=== PATIENT | male | born 1995 | race American Indian/Alaskan Native ===

== ENCOUNTER 2017-05-11 00:44 | Emergency (ER) | payer OTHER ==
[2017-05-11] MEDS ORDERED: LORazepam 1 MG Tab PO ONE (01:14)
--- NOTE | 2017-05-11 01:14 | EDM.PDOC ---
ED HPI GENERAL MEDICAL PROBLEM - General Chief Complaint: ENT Problem Stated Complaint: EAR PROBLEMS [id number] Time Seen by Provider: 05/11/17 01:06 Source of Information: Reports: Patient History Limitations: Reports: No Limitations - History of Present Illness INITIAL COMMENTS - FREE TEXT/NARRATIVE: c/oringing in left ear for ast few days tonight felt right side of face numb and hair tingling. Had cold symptoms last week. Only recent medication was claritn yesterday - Related Data Allergies Allergy/AdvReac Type Severity Reaction Status Date / Time No Known Allergies Allergy Verified 05/11/17 00:52 Home Meds: Home Meds . [No Known Home Meds] 05/11/17 [History] Past Medical History - Past Health History Medical/Surgical History: Denies Medical/Surgical History Neurological History: Reports: Brain Injury, Concussion Psychiatric History: Reports: Panic Attack Social & Family History - Family History Family Medical History: Noncontributory - Tobacco Use Smoking Status *Q: Never Smoker Second Hand Smoke Exposure: No - Caffeine Use Caffeine Use: Reports: Coffee - Recreational Drug Use Recreational Drug Use: No ED ROS ENT - Review of Systems Review Of Systems: ROS reveals no pertinent complaints other than HPI. ED EXAM, ENT - Physical Exam Exam: See Below Exam Limited By: No Limitations General Appearance: Alert, Anxious Eye Exam: Bilateral Eye: EOMI, Normal Fundi, PERRL Ears: Normal External Exam, Normal Canal, TM Fluid (left greater than right). No: TM Erythema Nose: Normal Inspection Mouth/Throat: Normal Inspection Head: Atraumatic, Normocephalic Neck: Normal Inspection, Non-Tender, Full Range of Motion. No: Lymphadenopathy (L), Lymphadenopathy (R) Respiratory/Chest: No Respiratory Distress, Lungs Clear, Normal Breath Sounds Cardiovascular: Normal Peripheral Pulses, Regular Rate, Rhythm Back: Full Range of Motion Extremities: Normal Inspection, Normal Range of Motion Neurological: Alert, Oriented, Normal Cognition Psychiatric: Anxious Skin: Warm, Dry, Intact, Normal Color Course - Vital Signs Last Recorded V/S: Last Vital Signs Temp 98.4 F 05/11/17 00:48 Pulse 125 H 05/11/17 00:57 Resp 16 05/11/17 00:57 BP 161/87 H 05/11/17 00:57 Pulse Ox 100 05/11/17 00:57 - Orders/Labs/Meds Meds: Medications Discontinued Medications Generic Name Dose Route Start Last Admin Trade Name Horacio PRN Reason Stop Dose Admin Lorazepam 1 mg 05/11/17 01:14 05/11/17 01:18 Ativan PO 05/11/17 01:15 1 mg ONETIME ONE Administration Departure - Departure Time of Disposition: :27 Disposition: Home, Self-Care 01 Condition: Good Clinical Impression: Anxiety about health, Fluid collection of middle ear, Tinnitus of left ear - Discharge Information Instructions: Tinnitus Forms: ED Department Discharge Additional Instructions: Muccinex per label follow up if symptoms worsen
== END 2017-05-11 01:37 | disposition home or self-care (01) ==
LOC: DL.ED 00:44
DX: H93.12 Tinnitus, left ear (principal); F41.9 Anxiety disorder, unspecified; H93.8X3 Other specified disorders of ear, bilateral
CPT/HCPCS: 99282; A9270

== ENCOUNTER 2020-07-18 20:34 | Emergency (ER) | payer OTHER ==
--- NOTE | 2020-07-18 21:10 | EDM.PDOC ---
ED HPI GENERAL MEDICAL PROBLEM - General Chief Complaint: Neuro Symptoms/Deficits Stated Complaint: RIGHT SIDE OF FACE NUMB GOING DOWN NECK Time Seen by Provider: 07/18/20 21:05 Source of Information: Reports: Patient History Limitations: Reports: No Limitations - History of Present Illness INITIAL COMMENTS - FREE TEXT/NARRATIVE: sudden onset right face numbness Wednesday while throwing darts. denies head/neck/should/arm injury or straining. Wednesday got recurrent migraine attack then Wednesday got IM toradol and migraine got better but right face numbness got worse. denies dizziness or pain when turns neck but does get occasional sharp pains behind right back if neck. denies sore throat/ear ache/jaw pain. - Related Data Allergies Allergy/AdvReac Type Severity Reaction Status Date / Time No Known Allergies Allergy Verified 07/18/20 20:44 Home Meds: Home Meds . [No Known Home Meds] 05/11/17 [History] Past Medical History - Past Health History Medical/Surgical History: Denies Medical/Surgical History Neurological History: Reports: Brain Injury, Concussion Psychiatric History: Reports: Anxiety, Panic Attack Social & Family History - Family History Family Medical History: No Pertinent Family History - Tobacco Use Tobacco Use Status *Q: Never Tobacco User Second Hand Smoke Exposure: No - Caffeine Use Caffeine Use: Reports: Coffee - Recreational Drug Use Recreational Drug Use: No ED ROS GENERAL - Review of Systems Review Of Systems: Comprehensive ROS is negative, except as noted in HPI. ED EXAM, NEURO - Physical Exam Exam: See Below Exam Limited By: No Limitations General Appearance: Alert, WD/WN, Mild Distress, Other (upset) Eye Exam: Bilateral Eye: PERRL (pupils ER @ 4mm) Ears: Normal External Exam, Normal Canal, Hearing Grossly Normal, Normal TMs Throat/Mouth: Normal Inspection, Normal Oropharynx, Normal Voice, No Airway Compromise Head Exam: Atraumatic Neck: Non-Tender, Full Range of Motion Respiratory/Chest: No Respiratory Distress Cardiovascular: Regular Rate, Rhythm GI/Abdominal: Soft, Non-Tender (Male) Exam: Deferred Rectal (Males) Exam: Deferred Neurological: Alert, Normal Gait, No Motor/Sensory Deficits, Oriented x 3, Other (face symmetrical) Back Exam: Full Range of Motion Extremities: Normal Range of Motion Psychiatric: Flat Affect Skin Exam: Warm, Dry, Normal Color Course - Vital Signs Last Recorded V/S: Last Vital Signs Temp 37.1 C 07/18/20 20:45 Pulse 115 H 07/18/20 20:45 Resp 12 07/18/20 20:45 BP 152/96 H 07/18/20 20:45 Pulse Ox 100 07/18/20 20:45 - Orders/Labs/Meds Labs: Laboratory Tests 07/18/20 07/18/20 07/18/20 Range/Units 21:00 21:00 21:00 WBC 10.2 H (5.0-10.0) 10^3/uL RBC 4.82 (4.6-6.2) 10^6/uL Hgb 14.9 (14.0-18.0) g/dL Hct 43.6 (40.0-54.0) % MCV 90.5 (80-100) fL MCH 30.9 (27.0-34.0) pg MCHC 34.2 (33.0-35.0) g/dL Plt Count 252 (150-450) 10^3/uL Neut % (Auto) 65.9 (42.2-75.2) % Lymph % (Auto) 26.4 (20.5-50.1) % [place] % (Auto) 6.3 (2-8) % Eos % (Auto) 1.3 (1.0-3.0) % Baso % (Auto) 0.1 (0.0-1.0) % ESR 3 (0-15) mm/hr Sodium 141 (136-145) mmol/L Potassium 4.1 (3.5-5.1) mmol/L Chloride 103 (98-107) mmol/L Carbon Dioxide 29 (21-32) mmol/L Anion Gap 13.1 H (7-13) mEq/L BUN 11 (7-18) mg/dL Creatinine 0.86 (0.70-1.30) mg/dL Est Cr Clr Drug Dosing 154.21 mL/min Estimated GFR (MDRD) > 60 BUN/Creatinine Ratio 12.8 (No establ ref range) Glucose 99 (74-99) mg/dL Calcium 9.5 (8.5-10.1) mg/dL Total Bilirubin 0.6 (0.2-1.0) mg/dL AST 17 (15-37) U/L ALT 33 (16-63) U/L Alkaline Phosphatase 69 (46-116) U/L Total Protein 7.9 (6.4-8.2) g/dL Albumin 4.6 (3.4-5.0) g/dL Globulin 3.3 Albumin/Globulin Ratio 1.4 - Re-Assessments/Exams Free Text/Narrative Re-Assessment/Exam: 07/18/20 22:20 results discussed with pt then mother Agnes. pt states his migraine go from forehead to back of neck. Departure - Departure Time of Disposition: 22:21 Disposition: Home, Self-Care 01 Condition: Good Clinical Impression: Cerebellar tonsillar ectopia, Facial paresthesia - Discharge Information Forms: ED Department Discharge Additional Instructions: 1) see clinic tomorrow for NEUROLOGY REFERRAL FOR CEREBELLA TONSILS ECTOPIA 2) rest and avoid vigorous activities. Sepsis Event Note (ED) - Evaluation Sepsis Screening Result: No Definite Risk - Focused Exam Vital Signs: Vital Signs Temp Pulse Resp BP Pulse Ox 07/18/20 20:45 37.1 C 115 H 12 152/96 H 100
[2020-07-18 21:25] LABS: ANION GAP 13.1 mEq/L (7-13); CHLORIDE,CL 103 mmol/L (98-107); SODIUM,NA 141 mmol/L (136-145)
--- NOTE | 2020-07-18 21:41 | CT ---
PROCEDURE INFORMATION: Exam: CT Head Without Contrast Exam date and time: 07/18/2020 9:19 PM Age: 25 years old Clinical indication: Other: RT side facial numbness; Additional info: R) sided facial numbness TECHNIQUE: Imaging protocol: Computed tomography of the head without contrast. Total images: 154 Radiation optimization: All CT scans at this facility use at least one of these dose optimization techniques: automated exposure control; mA and/or kV adjustment per patient size (includes targeted exams where dose is matched to clinical indication); or iterative reconstruction. COMPARISON: CT Head w wo Cont 07/19/2019 1:28 PM FINDINGS: Brain: Cerebellar tonsils are low lying, approximately 4-5 mm. Possibly slightly increased from the prior study. Cerebral ventricles: No ventriculomegaly. Bones/joints: Unremarkable. No acute fracture. Paranasal sinuses: Minimal mucosal thickening right maxillary sinus. Mastoid air cells: Visualized mastoid air cells are well aerated. Soft tissues: Unremarkable. IMPRESSION: 1. No evidence for acute intracranial hemorrhage or acute intracranial ischemia. 2. Low lying cerebellar tonsils, approximately 4-5 mm. Etiology uncertain.
== END 2020-07-18 22:29 | disposition home or self-care (01) ==
LOC: DL.ED 20:34
DX: Q04.8 Other specified congenital malformations of brain (principal)
CPT/HCPCS: 36415; 70450; 80053; 85025; 85651; 99284-25

== ENCOUNTER 2020-11-29 21:01 | Emergency (ER) | payer OTHER ==
[2020-11-29] MEDS ORDERED: Aspirin 81 MG Tab.Chew PO ONE (22:01)
--- NOTE | 2020-11-29 22:03 | EDM.PDOC ---
ED HPI GENERAL MEDICAL PROBLEM - General Chief Complaint: Chest Pain Stated Complaint: CHEST PAINS, LEFT ARM & THIGH. PER PT Time Seen by Provider: 11/29/20 21:50 Source of Information: Reports: Patient History Limitations: Reports: No Limitations - History of Present Illness INITIAL COMMENTS - FREE TEXT/NARRATIVE: This 25 yo male patient reports to the ED due to chest pain, left arm tingling and left leg pain. The patient reports his chest pain (more pressure) started this afternoon at 1600, but has mostly resolved at this time. The patient reports his left arm tingling started at about the same time as his chest pain and is better now, but still feels like a cool tingling in his left arm. The patient reports his left leg pain is in his thigh area and has been present for about 1 week. The patient reports similar leg pain about 1 month ago (was seen at the [facility] and advised that he may have pulled something). The patient has not been seen for any of these symptoms in the past week. The patient denies any drug or alcohol use. The patient does admit to daily smoking of marijuana (last use was yesterday). The patient denies any shortness of breath at this time. Onset: Today Onset Date: 11/29/20 Onset Time: 16:00 Duration: Improving Location: Reports: Chest, Upper Extremity, Left, Lower Extremity, Left Quality: Reports: Ache, Pressure Severity: Moderate Improves with: Reports: None Worsens with: Reports: None Associated Symptoms: Reports: Chest Pain Chest Pain Score (Numeric/FACES): 5 - Related Data Allergies Allergy/AdvReac Type Severity Reaction Status Date / Time No Known Allergies Allergy Verified 07/18/20 20:44 Home Meds: Home Meds . 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 ED EXAM, GENERAL - Physical Exam Exam: See Below Exam Limited By: No Limitations General Appearance: Alert, WD/WN, Anxious, Mild Distress Eye Exam: Bilateral Eye: EOMI, Normal Inspection, PERRL Ears: Normal External Exam, Normal Canal, Hearing Grossly Normal, Normal TMs Nose: Normal Inspection, Normal Mucosa, No Blood Throat/Mouth: Normal Inspection, Normal Lips, Normal Teeth, Normal Gums, Normal Oropharynx, Normal Voice, No Airway Compromise Head: Atraumatic, Normocephalic Neck: Normal Inspection, Supple, Non-Tender, Full Range of Motion Respiratory/Chest: No Respiratory Distress, Lungs Clear, Normal Breath Sounds, No Accessory Muscle Use, Chest Non-Tender Cardiovascular: Normal Peripheral Pulses, Regular Rate, Rhythm, No Edema, No Gallop, No JVD, No Murmur, No Rub GI/Abdominal: Normal Bowel Sounds, Soft, Non-Tender, No Organomegaly, No Distention, No Abnormal Bruit, No Mass (Male) Exam: Deferred Rectal (Males) Exam: Deferred Back Exam: Normal Inspection, Full Range of Motion, NT Extremities: Normal Inspection, Normal Range of Motion, Non-Tender, Normal Capillary Refill, No Pedal Edema Neurological: Alert, Oriented, CN II-XII Intact, Normal Cognition, Normal Gait, Normal Reflexes, No Motor/Sensory Deficits Psychiatric: Anxious Skin Exam: Warm, Dry, Intact, Normal Color, No Rash Lymphatic: No Adenopathy #1 Interpretation EKG Date: 11/29/20 Time: 22:10 Rhythm: NSR Rate (Beats/Min): 62 [place]: Normal P-Wave: Present QRS: Normal ST-T: Normal QT: Normal Comparison: NA - No Prior EKG Course - Vital Signs Last Recorded V/S: Last Vital Signs Temp 98.4 F 11/29/20 21:43 Pulse 84 11/29/20 21:43 Resp 16 11/29/20 21:43 BP 147/74 H 11/29/20 21:43 Pulse Ox 99 11/29/20 21:43 - Orders/Labs/Meds Orders: Active Orders 24 hr Category Date Time Status EKG Documentation Completion [RC] STAT Care 11/29/20 21:50 Ordered Chest 1V Frontal [CR] Urgent Exams 11/29/20 21:51 Ordered CULTURE BLOOD [BC] Stat Lab 11/29/20 21:50 Ordered DRUG SCREEN URINE BIORAD [URCHEM] Stat Lab 11/29/20 22:54 Stop Req UA RFX MOO AND CULT IF INDIC [URIN] Urgent Lab 11/29/20 22:54 Stop Req Omeprazole Med 11/29/20 23:08 Once 20 mg PO ONETIME ONE Medication Orders Omeprazole (Omeprazole 20 Mg Cap.Cr) 20 mg PO ONETIME ONE Stop: 11/29/20 23:09 Labs: Laboratory Tests 11/29/20 11/29/20 11/29/20 Range/Units 22:00 22:00 22:00 WBC 7.4 (5.0-10.0) 10^3/uL RBC 4.62 (4.6-6.2) 10^6/uL Hgb 14.4 (14.0-18.0) g/dL Hct 42.6 (40.0-54.0) % MCV 92.2 (80-100) fL MCH 31.2 (27.0-34.0) pg MCHC 33.8 (33.0-35.0) g/dL Plt Count 266 (150-450) 10^3/uL Neut % (Auto) 67.5 (42.2-75.2) % Lymph % (Auto) 24.5 (20.5-50.1) % [place] % (Auto) 6.4 (2-8) % Eos % (Auto) 1.2 (1.0-3.0) % Baso % (Auto) 0.4 (0.0-1.0) % Sodium 140 (136-145) mmol/L Potassium 3.6 (3.5-5.1) mmol/L Chloride 105 (98-107) mmol/L Carbon Dioxide 27 (21-32) mmol/L Anion Gap 11.6 (7-13) mEq/L BUN 9 (7-18) mg/dL Creatinine 0.89 (0.70-1.30) mg/dL Est Cr Clr Drug Dosing 149.01 mL/min Estimated GFR (MDRD) > 60 BUN/Creatinine Ratio 10.1 (No establ ref range) Glucose 95 (70-99) mg/dL Lactic Acid 0.7 (0.4-2.0) mmol/L Calcium 8.7 (8.5-10.1) mg/dL Magnesium 2.2 (1.8-2.4) mg/dL Total Bilirubin 0.6 (0.2-1.0) mg/dL AST 17 (15-37) U/L ALT 31 (16-63) U/L Alkaline Phosphatase 67 (46-116) U/L Troponin I High Sens 5 (<=76) pg/mL Total Protein 7.4 (6.4-8.2) g/dL Albumin 4.1 (3.4-5.0) g/dL Globulin 3.3 Albumin/Globulin Ratio 1.2 Ethyl Alcohol < 3 (0) mg/dL Meds: Medications Generic Name Dose Route Start Last Admin Trade Name Freq PRN Reason Stop Dose Admin Omeprazole 20 mg 11/29/20 23:08 Omeprazole 20 Mg Cap.Cr PO 11/29/20 23:09 ONETIME ONE Discontinued Medications Generic Name Dose Route Start Last Admin Trade Name Freq PRN Reason Stop Dose Admin Aspirin 324 mg 11/29/20 22:01 11/29/20 22:37 Aspirin 81 Mg Tab.Chew PO 11/29/20 22:02 324 mg ONETIME ONE Administration Departure - Departure Time of Disposition: 23:08 Disposition: Home, Self-Care 01 Condition: Fair Clinical Impression: Acid reflux Qualifiers: Esophagitis presence: esophagitis presence not specified Qualified Code(s): K21.9 - Gastro-esophageal reflux disease without esophagitis Forms: ED Department Discharge Care Plan Goals: The patient was advised of the examination, lab, EKG and x-ray results during the visit. The patient was given an oral dose of Omeprazole (20 mg) while in the ED. The patient was discharged with a script for Omeprazole (20 mg) #30 to take 1 by mouth 30 minutes prior to eating daily for the next month. If the patient has any additional symptoms or concerns, the patient should either return to the emergency department or visit his primary care facility. Sepsis Event Note (ED) - Evaluation Sepsis Screening Result: No Definite Risk - Focused Exam Vital Signs: Vital Signs Temp Pulse Resp BP Pulse Ox 11/29/20 21:43 98.4 F 84 16 147/74 H 99 - My Orders Last 24 Hours: My Active Orders 11/29/20 21:50 EKG Documentation Completion [RC] STAT CULTURE BLOOD [BC] Stat 11/29/20 21:51 Chest 1V Frontal [CR] Urgent 11/29/20 22:54 DRUG SCREEN URINE BIORAD [URCHEM] Stat UA RFX MOO AND CULT IF INDIC [URIN] Urgent 11/29/20 23:08 Omeprazole 20 mg PO ONETIME ONE - Assessment/Plan Last 24 Hours: My Active Orders 11/29/20 21:50 EKG Documentation Completion [RC] STAT CULTURE BLOOD [BC] Stat 11/29/20 21:51 Chest 1V Frontal [CR] Urgent 11/29/20 22:54 DRUG SCREEN URINE BIORAD [URCHEM] Stat UA RFX MOO AND CULT IF INDIC [URIN] Urgent 11/29/20 23:08 Omeprazole 20 mg PO ONETIME ONE
[2020-11-29 22:26] LABS: ANION GAP 11.6 mEq/L (7-13); CHLORIDE,CL 105 mmol/L (98-107); SODIUM,NA 140 mmol/L (136-145)
[2020-11-29] MEDS ORDERED: Omeprazole 20 MG Cap.CR PO ONE (23:08)
--- NOTE | 2020-11-29 23:26 | CR ---
PROCEDURE INFORMATION: Exam: XR Chest Exam date and time: 11/29/2020 10:25 PM Age: 25 years old Clinical indication: Other: Chest pain TECHNIQUE: Imaging protocol: XR of the chest. Views: 1 view. COMPARISON: No relevant prior studies available. FINDINGS: Lungs: Unremarkable. No consolidation. Pleural spaces: Unremarkable. No pleural effusion. No pneumothorax. Heart/Mediastinum: Unremarkable. No cardiomegaly. Bones/joints: Unremarkable. IMPRESSION: No acute findings.
== END 2020-11-29 23:25 | disposition home or self-care (01) ==
LOC: DL.ED 21:01
DX: K21.9 Gastro-esophageal reflux disease without esophagitis (principal)
CPT/HCPCS: 36415; 71045; 80053; 80305-QW; 80307; 81003; 83605; 83735; 84484; 85025; 87040; 93005; 93010; 99283; 99285-25; A9270-GY

== ENCOUNTER 2024-04-20 09:12 | Emergency (ER) | payer OTHER | END 2024-04-20 10:25 | disposition home or self-care (01) | LOC: DL.ED 09:12 | DX: T26.92XA Corrosion of left eye and adnexa, part unspecified, initial encounter (principal); T26.91XA Corrosion of right eye and adnexa, part unspecified, initial encounter; T15.92XA Foreign body on external eye, part unspecified, left eye, initial encounter; T15.91XA Foreign body on external eye, part unspecified, right eye, initial encounter; W44.8XXA Other foreign body entering into or through a natural orifice, initial encounter | CPT/HCPCS: 99283 ==